=== PATIENT | female | born 1985 | race African-American/Black ===

== ENCOUNTER 2019-07-24 09:35 | Inpatient (IN) | payer OTHER ==
[~2019-07-24] VITALS: Ht 162.6 cm; Wt 108.9 kg
[2019-07-24] MEDS ORDERED: HYDROCODONE/ACETAMINOPHEN 5/325MG TABLET PO ONE (10:15)
[2019-07-24] MEDS ORDERED: MORPHINE SULFATE 4 MG/ML CPJ (NOT FOR IM USE) IV ONE ×3 (14:00→21:15)
[2019-07-24] MEDS ORDERED: ONDANSETRON HCL 4MG/2ML INJ IV ONE ×2 (16:15→21:15)
[2019-07-25] MEDS ORDERED: MORPHINE SULFATE 4 MG/ML CPJ (NOT FOR IM USE) IV ONE (00:45)
[2019-07-25] MEDS ORDERED: ONDANSETRON HCL 4MG/2ML INJ IV ONE (00:45)
[2019-07-25] MEDS ORDERED: ACETAMINOPHEN 325MG TABLET PO ONE (06:00)
[2019-07-25] MEDS ORDERED: HYDROCODONE/ACETAMINOPHEN 5/325MG TABLET PO ONE (12:00)
[2019-07-25] MEDS ORDERED: DOCUSATE SODIUM 100MG CAPSULE PO PRN (13:00)
[2019-07-25] MEDS ORDERED: KETOROLAC 15MG/ML VIAL IV PRN (13:00)
[2019-07-25] MEDS ORDERED: LORAZEPAM 0.5MG TABLET PO PRN (13:00)
[2019-07-25] MEDS ORDERED: GUAIFENESIN 200MG/10ML SUGAR FREE UDC PO PRN (13:00)
[2019-07-25] MEDS ORDERED: CLONIDINE 0.1MG TABLET PO PRN (13:00)
[2019-07-25] MEDS ORDERED: NITROGLYCERIN 0.4MG TABLET SL SL PRN (13:00)
[2019-07-25] MEDS ORDERED: IPRATROPIUM/ALBUTEROL 0.5-3(2.5)MG/3ML NEB NEB PRN (13:00)
[2019-07-25] MEDS ORDERED: ZOLPIDEM TARTRATE 5MG TABLET PO PRN (13:00)
[2019-07-25] MEDS ORDERED: MAGNESIUM/ALUMINUM HYDROXIDE/SIMETHICONE 30ML UDC PO PRN (13:00)
[2019-07-25 13:09] LABS: BASOPHILS % 0.8 % (0.0-2.0); EOSINOPHILS % 0.7 % (0.0-5.0); HEMATOCRIT. 36.5 % (36.0-48.0); HEMOGLOBIN. 12.4 g/dL (12.0-16.0); LYMPHOCYTES % 17.7 % (20.0-50.0); MEAN CORPUSCULAR HEMOGLOBIN 31.3 pg (28.0-32.0); MEAN CORPUSCULAR VOLUME 92.2 fL (81.0-99.0); MEAN PLATELET VOLUME 8.2 fl (7.4-10.4); MONOCYTES % 7.7 % (2.0-8.0); NEUTROPHILS % 73.1 % (40.0-76.0); PLATELET 319 x1000/uL (130-400); RED BLOOD CELL COUNT 3.95 mill/uL (4.2-5.4); RED CELL DISTRIBUTION WIDTH 14.2 % (11.6-14.6)
[2019-07-25 13:16] LABS: INR 1.1; PROTHROMBIN TIME 11.3 sec (9.6-11.0)
[2019-07-25 13:18] LABS: CHLORIDE 104 mEq/L (98-107)
[2019-07-25] MEDS: ONDANSETRON HCL 4MG/2ML INJ IV PRN (13:33)
[2019-07-25 14:46] VITALS: BP 154/79
[2019-07-25] MEDS ORDERED: METF-815 MT (14:55)
[2019-07-25] MEDS: MORPHINE SULFATE 2 MG/ML CPJ (NOT FOR IM USE) IV PRN ×2 (15:16→20:45)
[2019-07-25 16:00] VITALS: BP 154/79
[2019-07-25] MEDS ORDERED: INFLUENZA VIRUS VACCINE(AFLURIA) 0.5ML SYR IM ONE (16:00)
[2019-07-25] MEDS ORDERED: PNEUMOCOCCAL 23-VAL P-SAC VAC 0.5 ML IM ONE (16:00)
[2019-07-25] MEDS ORDERED: DEXTROSE 50% WATER 50ML SYRINGE IV PRN (17:15)
[2019-07-25] MEDS: INSULIN LISPRO 100 UNITS/ML SUBCUT SCH ×2 (17:24→21:00)
[2019-07-25] MEDS: BLOOD SUGAR DIAGNOSTIC STRIP TEST SCH ×2 (17:24→21:00)
[2019-07-25] MEDS: HYDROCODONE/ACETAMINOPHEN 10/325MG TABLET PO PRN ×2 (17:38→23:49)
[2019-07-25 20:00] VITALS: BP 129/75
[2019-07-25] MEDS: FAMOTIDINE 20MG TABLET PO SCH (20:27)
[2019-07-25] MEDS: ENOXAPARIN 30MG/0.3ML SYR SUBCUT SCH (20:35)
[2019-07-25] MEDS ORDERED: ENOXAPARIN 40MG/0.4ML SYR SUBCUT SCH (21:00)
[2019-07-26] VITALS: BP 121/74
[2019-07-26] MEDS: ONDANSETRON HCL 4MG/2ML INJ IV PRN ×4 (00:55→20:14)
[2019-07-26] MEDS: MORPHINE SULFATE 2 MG/ML CPJ (NOT FOR IM USE) IV PRN ×4 (01:57→20:10)
[2019-07-26 04:00] VITALS: BP 154/56
[2019-07-26] MEDS: BLOOD SUGAR DIAGNOSTIC STRIP TEST SCH ×4 (07:20→20:57)
[2019-07-26 07:30] LABS: *AMPHETAMINES SCREEN URINE NEGATIVE (NEGATIVE); *BARBITURATES SCREEN URINE NEGATIVE (NEGATIVE); *BENZODIAZEPINES SCREEN URINE NEGATIVE (NEGATIVE)
[2019-07-26 07:31] LABS: *COCAINE SCREEN URINE NEGATIVE (NEGATIVE); CANNABINOID URINE SCREEN NEGATIVE (NEGATIVE); METHADONE URINE SCREEN NEGATIVE (NEGATIVE); PHENCYCLIDINE URINE SCREEN NEGATIVE (NEGATIVE)
[2019-07-26 07:38] LABS: OPIATES URINE SCREEN PRESUMTIVE POSITIVE (NEGATIVE)
[2019-07-26] MEDS: INSULIN LISPRO 100 UNITS/ML SUBCUT SCH ×4 (07:50→20:57)
[2019-07-26 08:00] VITALS: BP 128/60
[2019-07-26] MEDS: FAMOTIDINE 20MG TABLET PO SCH ×2 (08:50→20:14)
[2019-07-26] MEDS: ENOXAPARIN 30MG/0.3ML SYR SUBCUT SCH ×2 (08:51→20:38)
[2019-07-26] MEDS: HYDROCODONE/ACETAMINOPHEN 10/325MG TABLET PO PRN ×2 (08:58→15:16)
[2019-07-26 12:00] VITALS: BP 143/84
[2019-07-26 16:00] VITALS: BP 112/53
[2019-07-26 20:00] VITALS: BP 153/88
[2019-07-27] VITALS: BP 145/69
[2019-07-27 04:00] VITALS: BP 112/64
[2019-07-27] MEDS: BLOOD SUGAR DIAGNOSTIC STRIP TEST SCH ×4 (06:24→21:00)
[2019-07-27] MEDS: INSULIN LISPRO 100 UNITS/ML SUBCUT SCH ×4 (07:47→21:00)
[2019-07-27 08:00] VITALS: BP 135/84
[2019-07-27] MEDS: MORPHINE SULFATE 2 MG/ML CPJ (NOT FOR IM USE) IV PRN ×2 (08:19→14:52)
[2019-07-27] MEDS: ENOXAPARIN 30MG/0.3ML SYR SUBCUT SCH ×2 (09:00→21:00)
[2019-07-27] MEDS: FAMOTIDINE 20MG TABLET PO SCH ×2 (09:00→22:31)
[2019-07-27] MEDS: DEXT 5%/0.9% NACL 1,000 ML IV SCH ×2 (11:03→22:22)
[2019-07-27 12:00] VITALS: BP 131/68
[2019-07-27 16:00] VITALS: BP 127/57
[2019-07-27] MEDS ORDERED: SKIN ADHESIVE 0.7 GM EA TOP ONE (16:01)
[2019-07-27] MEDS ORDERED: VANCOMYCIN HCL 500 MG/VIAL ONE (16:01)
[2019-07-27] MEDS ORDERED: BUPIVACAINE/EPINEPH/PF 0.25%/0.0005 10ML ONE (16:01)
[2019-07-27 16:43] LABS: HCG SCREEN NEGATIVE
[2019-07-27] MEDS ORDERED: FENTANYL CITRATE/PF 50MCG/ML 2ML VIAL ONE ×3 (17:30→19:05)
[2019-07-27] MEDS ORDERED: LIDOCAINE HCL/PF 1% 10 MG/ML 5ML VIAL ONE (17:30)
[2019-07-27] MEDS ORDERED: MIDAZOLAM HCL 2 MG/2 ML VIAL ONE (17:30)
[2019-07-27] MEDS ORDERED: PROPOFOL 200MG/20ML VIAL IV ONE (17:30)
[2019-07-27] MEDS ORDERED: ONDANSETRON HCL 4MG/2ML INJ ONE (17:31)
[2019-07-27] MEDS ORDERED: CEFAZOLIN SODIUM 1000MG/VIAL ONE (17:31)
[2019-07-27] MEDS ORDERED: METOCLOPRAMIDE HCL 10MG/2ML VIAL ONE (17:31)
[2019-07-27] MEDS ORDERED: KETOROLAC 30MG/ML VIAL ONE (18:23)
[2019-07-27] MEDS ORDERED: HYDROMORPHONE HCL/PF 2MG/ML (OR) ONE ×2 (19:54→20:57)
[2019-07-27] MEDS ORDERED: SODIUM CHLORIDE 0.9% 1,000 ML IV SCH (20:23)
[2019-07-27] MEDS ORDERED: HYDROMORPHONE HCL/PF 2MG/ML CPJ IV PRN (20:30)
[2019-07-27] MEDS: HYDROCODONE/ACETAMINOPHEN 10/325MG TABLET PO PRN (22:32)
[2019-07-27] MEDS: ONDANSETRON HCL 4MG/2ML INJ IV PRN (22:39)
[2019-07-28] MEDS: MORPHINE SULFATE 2 MG/ML CPJ (NOT FOR IM USE) IV PRN ×4 (02:14→19:47)
[2019-07-28 04:00] VITALS: BP 148/90
[2019-07-28] MEDS: CEFAZOLIN 2,000 MG in DEXT 5% WATER 100 ML IV SCH ×3 (05:04→19:58)
[2019-07-28] MEDS: BLOOD SUGAR DIAGNOSTIC STRIP TEST SCH ×4 (06:38→21:00)
[2019-07-28] MEDS: INSULIN LISPRO 100 UNITS/ML SUBCUT SCH ×4 (06:40→21:00)
[2019-07-28] MEDS: HYDROCODONE/ACETAMINOPHEN 10/325MG TABLET PO PRN ×3 (06:55→23:00)
[2019-07-28 08:00] VITALS: BP 136/75
[2019-07-28] MEDS: FAMOTIDINE 20MG TABLET PO SCH ×2 (08:13→20:48)
[2019-07-28] MEDS: ENOXAPARIN 30MG/0.3ML SYR SUBCUT SCH ×2 (08:14→20:49)
[2019-07-28] MEDS: DEXT 5%/0.9% NACL 1,000 ML IV SCH ×2 (10:30→17:02)
[2019-07-28 12:00] VITALS: BP 136/80
[2019-07-28 16:00] VITALS: BP 146/87
[2019-07-28] MEDS: ONDANSETRON HCL 4MG/2ML INJ IV PRN (16:59)
[2019-07-28] MEDS: LACTULOSE 20G/30ML UDC PO SCH ×2 (17:01→20:48)
[2019-07-28] MEDS: DOCUSATE SODIUM 100MG CAPSULE PO SCH (17:01)
[2019-07-28 20:00] VITALS: BP 155/94
[2019-07-28] MEDS: ACETAMINOPHEN 325MG TABLET PO PRN (20:49)
[2019-07-29] VITALS (7 sets, daily range): BP systolic 131–151; BP diastolic 78–89
[2019-07-29] MEDS: MORPHINE SULFATE 2 MG/ML CPJ (NOT FOR IM USE) IV PRN ×4 (03:48→22:57)
[2019-07-29] MEDS: BLOOD SUGAR DIAGNOSTIC STRIP TEST SCH ×4 (06:29→20:50)
[2019-07-29] MEDS: HYDROCODONE/ACETAMINOPHEN 10/325MG TABLET PO PRN ×3 (06:32→20:39)
[2019-07-29] MEDS: INSULIN LISPRO 100 UNITS/ML SUBCUT SCH ×4 (07:50→20:50)
[2019-07-29] MEDS: DOCUSATE SODIUM 100MG CAPSULE PO SCH ×2 (08:08→16:30)
[2019-07-29] MEDS: ENOXAPARIN 30MG/0.3ML SYR SUBCUT SCH ×2 (08:08→20:39)
[2019-07-29] MEDS: FAMOTIDINE 20MG TABLET PO SCH ×2 (08:08→20:39)
[2019-07-29] MEDS: LACTULOSE 20G/30ML UDC PO SCH (08:09)
[2019-07-29] MEDS: POLYETHYLENE GLYCOL 3350 (17GM) 1 DOSE PACK PO SCH (08:14)
[2019-07-29] MEDS ORDERED: MORPHINE SULFATE 4 MG/ML CPJ (NOT FOR IM USE) IV SCH (10:57)
[2019-07-29 11:52] LABS: CREATINE KINASE MB FRACTION < 1.0 ng/mL (0.5-3.6)
[2019-07-29] MEDS: ACETAMINOPHEN 325MG TABLET PO PRN (12:19)
[2019-07-29] MEDS: DEXT 5%/0.9% NACL 1,000 ML IV SCH (12:29)
[2019-07-30] VITALS: BP 148/72
[2019-07-30] MEDS: MORPHINE SULFATE 2 MG/ML CPJ (NOT FOR IM USE) IV PRN ×2 (03:18→09:58)
[2019-07-30 04:00] VITALS: BP 101/62
[2019-07-30] MEDS: HYDROCODONE/ACETAMINOPHEN 10/325MG TABLET PO PRN ×3 (05:25→20:22)
[2019-07-30 06:41] LABS: BASOPHILS % 0.5 % (0.0-2.0); HEMATOCRIT. 30.7 % (36.0-48.0); HEMOGLOBIN. 10.4 g/dL (12.0-16.0); LYMPHOCYTES % 24.1 % (20.0-50.0); MEAN CORPUSCULAR HEMOGLOBIN 30.8 pg (28.0-32.0); MEAN CORPUSCULAR VOLUME 90.9 fL (81.0-99.0); MEAN PLATELET VOLUME 8.3 fl (7.4-10.4); MONOCYTES % 9.1 % (2.0-8.0); NEUTROPHILS % 63.3 % (40.0-76.0); PLATELET 330 x1000/uL (130-400); RED BLOOD CELL COUNT 3.37 mill/uL (4.2-5.4); RED CELL DISTRIBUTION WIDTH 13.9 % (11.6-14.6)
[2019-07-30 06:42] LABS: CHLORIDE 105 mEq/L (98-107)
[2019-07-30 06:50] LABS: PHOSPHORUS 2.8 mg/dL (2.5-4.9)
[2019-07-30] MEDS: INSULIN LISPRO 100 UNITS/ML SUBCUT SCH ×4 (07:30→21:00)
[2019-07-30] MEDS: BLOOD SUGAR DIAGNOSTIC STRIP TEST SCH ×4 (07:30→20:09)
[2019-07-30 08:00] VITALS: BP_SYST 112; BP_SYST 138; BP_DIAS 64; BP_DIAS 70
[2019-07-30] MEDS: FAMOTIDINE 20MG TABLET PO SCH ×2 (09:15→20:08)
[2019-07-30] MEDS: DOCUSATE SODIUM 100MG CAPSULE PO SCH ×2 (09:16→18:37)
[2019-07-30] MEDS: ENOXAPARIN 30MG/0.3ML SYR SUBCUT SCH ×2 (09:17→20:09)
[2019-07-30] MEDS: POLYETHYLENE GLYCOL 3350 (17GM) 1 DOSE PACK PO SCH (09:21)
[2019-07-30 12:00] VITALS: BP 134/67
[2019-07-30] MEDS ORDERED: MORPHINE SULFATE 2 MG/ML CPJ (NOT FOR IM USE) IV PRN (15:45)
[2019-07-30 16:00] VITALS: BP 124/63
[2019-07-30 20:00] VITALS: BP 145/65
[2019-07-30 20:02] LABS: CLARITY URINE CLEAR (CLEAR); COLOR URINE YELLOW (YELLOW); KETONES URINE TRACE (NEGATIVE); LEUKOCYTE ESTERASE URINE 2+ (NEGATIVE); NITRITE URINE NEGATIVE (NEGATIVE); OCCULT BLOOD URINE NEGATIVE (NEGATIVE); PH URINE 7.5 (4.5-8.0); PROTEIN URINE NEGATIVE (NEGATIVE); SPECIFIC GRAVITY URINE 1.012 (1.005-1.030)
[2019-07-31] VITALS: BP 136/80
[2019-07-31] MEDS: HYDROCODONE/ACETAMINOPHEN 10/325MG TABLET PO PRN ×3 (03:17→19:40)
[2019-07-31 04:00] VITALS: BP 142/78
[2019-07-31 06:35] LABS: BASOPHILS % 0.5 % (0.0-2.0); HEMOGLOBIN. 10.5 g/dL (12.0-16.0); LYMPHOCYTES % 26.5 % (20.0-50.0); MEAN CORPUSCULAR VOLUME 91.2 fL (81.0-99.0); MEAN PLATELET VOLUME 8.2 fl (7.4-10.4); PLATELET 358 x1000/uL (130-400); RED CELL DISTRIBUTION WIDTH 13.6 % (11.6-14.6)
[2019-07-31] MEDS: BLOOD SUGAR DIAGNOSTIC STRIP TEST SCH ×4 (07:13→21:00)
[2019-07-31] MEDS: INSULIN LISPRO 100 UNITS/ML SUBCUT SCH ×4 (07:13→21:00)
[2019-07-31 08:00] VITALS: BP 131/76
[2019-07-31] MEDS: POLYETHYLENE GLYCOL 3350 (17GM) 1 DOSE PACK PO SCH (09:30)
[2019-07-31] MEDS: FAMOTIDINE 20MG TABLET PO SCH ×2 (09:30→21:19)
[2019-07-31] MEDS: DOCUSATE SODIUM 100MG CAPSULE PO SCH ×2 (09:30→17:40)
[2019-07-31] MEDS: ENOXAPARIN 30MG/0.3ML SYR SUBCUT SCH ×2 (09:31→21:20)
[2019-07-31 12:00] VITALS: BP 134/73
[2019-07-31 16:00] VITALS: BP 149/78
[2019-07-31] MEDS: LACTULOSE 20G/30ML UDC PO SCH (17:41)
[2019-07-31 20:00] VITALS: BP 130/83
[2019-08-01] VITALS: BP 135/71
[2019-08-01] MEDS: LACTULOSE 20G/30ML UDC PO SCH ×2 (01:44→08:50)
[2019-08-01] MEDS: HYDROCODONE/ACETAMINOPHEN 10/325MG TABLET PO PRN ×4 (01:45→20:27)
[2019-08-01 04:00] VITALS: BP 146/70
[2019-08-01 06:47] LABS: BASOPHILS % 0.6 % (0.0-2.0); EOSINOPHILS % 4.4 % (0.0-5.0); HEMATOCRIT. 32.5 % (36.0-48.0); HEMOGLOBIN. 11.1 g/dL (12.0-16.0); LYMPHOCYTES % 34.3 % (20.0-50.0); MEAN CORPUSCULAR HEMOGLOBIN 30.9 pg (28.0-32.0); MEAN CORPUSCULAR VOLUME 90.6 fL (81.0-99.0); MEAN PLATELET VOLUME 8.2 fl (7.4-10.4); MONOCYTES % 8.2 % (2.0-8.0); NEUTROPHILS % 52.5 % (40.0-76.0); PLATELET 416 x1000/uL (130-400); RED BLOOD CELL COUNT 3.59 mill/uL (4.2-5.4); RED CELL DISTRIBUTION WIDTH 13.8 % (11.6-14.6)
[2019-08-01 06:50] LABS: CHLORIDE 105 mEq/L (98-107)
[2019-08-01 07:03] LABS: LDL CHOLESTEROL 78 mg/dL (5-100); PHOSPHORUS 4.4 mg/dL (2.5-4.9)
[2019-08-01 07:05] LABS: HDL CHOLESTEROL 24 mg/dL (40-59); TOTAL IRON BINDING CAPACITY 247 ug/dL (250-450)
[2019-08-01 07:07] LABS: FERRITIN 177 ng/mL (10-291)
[2019-08-01 07:18] LABS: VITAMIN B12 SERUM 397 pg/mL (211-911)
[2019-08-01] MEDS: BLOOD SUGAR DIAGNOSTIC STRIP TEST SCH ×4 (07:50→20:36)
[2019-08-01] MEDS: INSULIN LISPRO 100 UNITS/ML SUBCUT SCH ×4 (07:50→20:45)
[2019-08-01 08:00] VITALS: BP 147/68
[2019-08-01] MEDS: POLYETHYLENE GLYCOL 3350 (17GM) 1 DOSE PACK PO SCH (08:50)
[2019-08-01] MEDS: DOCUSATE SODIUM 100MG CAPSULE PO SCH ×2 (08:51→16:13)
[2019-08-01] MEDS: FAMOTIDINE 20MG TABLET PO SCH ×2 (08:51→20:29)
[2019-08-01] MEDS: ENOXAPARIN 30MG/0.3ML SYR SUBCUT SCH ×2 (09:01→20:30)
[2019-08-01 12:00] VITALS: BP_SYST 132; BP_SYST 97; BP_DIAS 55; BP_DIAS 81
[2019-08-01 16:00] VITALS: BP 146/76
[2019-08-01] MEDS: ASCORBIC ACID 500 MG TABLET PO SCH (16:13)
[2019-08-01] MEDS: CYANOCOBALAMIN 1000MCG/ML VIAL IM SCH (16:17)
[2019-08-01] MEDS: FERROUS SULFATE 325MG TABLET PO SCH (18:29)
[2019-08-01 20:00] VITALS: BP 130/72
[2019-08-02] VITALS: BP 115/66
[2019-08-02 04:00] VITALS: BP 115/76
[2019-08-02] MEDS: HYDROCODONE/ACETAMINOPHEN 10/325MG TABLET PO PRN ×3 (05:17→23:54)
[2019-08-02] MEDS: BLOOD SUGAR DIAGNOSTIC STRIP TEST SCH ×4 (07:26→21:21)
[2019-08-02] MEDS: INSULIN LISPRO 100 UNITS/ML SUBCUT SCH ×4 (07:50→21:00)
[2019-08-02 08:00] VITALS: BP 126/77
[2019-08-02] MEDS: ASCORBIC ACID 500 MG TABLET PO SCH (08:39)
[2019-08-02] MEDS: CYANOCOBALAMIN 1000MCG/ML VIAL IM SCH (08:39)
[2019-08-02] MEDS: ENOXAPARIN 30MG/0.3ML SYR SUBCUT SCH ×2 (08:39→21:20)
[2019-08-02] MEDS: DOCUSATE SODIUM 100MG CAPSULE PO SCH ×2 (08:39→17:00)
[2019-08-02] MEDS: POLYETHYLENE GLYCOL 3350 (17GM) 1 DOSE PACK PO SCH (08:39)
[2019-08-02] MEDS: FERROUS SULFATE 325MG TABLET PO SCH ×3 (08:39→17:50)
[2019-08-02] MEDS: FAMOTIDINE 20MG TABLET PO SCH ×2 (08:39→21:20)
[2019-08-02 12:00] VITALS: BP 125/79
[2019-08-02 16:00] VITALS: BP 120/71
[2019-08-02 20:00] VITALS: BP 108/71
[2019-08-03] VITALS: BP 142/85
[2019-08-03 04:00] VITALS: BP 142/85
[2019-08-03] MEDS: INSULIN LISPRO 100 UNITS/ML SUBCUT SCH ×4 (07:20→20:02)
[2019-08-03] MEDS: BLOOD SUGAR DIAGNOSTIC STRIP TEST SCH ×4 (07:20→20:03)
[2019-08-03] MEDS: ENOXAPARIN 30MG/0.3ML SYR SUBCUT SCH ×2 (08:24→20:03)
[2019-08-03] MEDS: CYANOCOBALAMIN 1000MCG/ML VIAL IM SCH (08:24)
[2019-08-03] MEDS: ASCORBIC ACID 500 MG TABLET PO SCH (08:25)
[2019-08-03] MEDS: FAMOTIDINE 20MG TABLET PO SCH ×2 (08:25→20:02)
[2019-08-03] MEDS: DOCUSATE SODIUM 100MG CAPSULE PO SCH ×3 (08:25→17:45)
[2019-08-03] MEDS: FERROUS SULFATE 325MG TABLET PO SCH ×4 (08:25→17:50)
[2019-08-03] MEDS: POLYETHYLENE GLYCOL 3350 (17GM) 1 DOSE PACK PO SCH (08:32)
[2019-08-03] MEDS ORDERED: LACTULOSE 20G/30ML UDC PO SCH (12:00)
[2019-08-03] MEDS: HYDROCODONE/ACETAMINOPHEN 10/325MG TABLET PO PRN (14:38)
[2019-08-04] MEDS: HYDROCODONE/ACETAMINOPHEN 10/325MG TABLET PO PRN ×2 (01:25→08:18)
[2019-08-04] MEDS: BLOOD SUGAR DIAGNOSTIC STRIP TEST SCH ×2 (05:51→12:20)
[2019-08-04] MEDS: INSULIN LISPRO 100 UNITS/ML SUBCUT SCH ×2 (05:51→12:50)
[2019-08-04] MEDS: DOCUSATE SODIUM 100MG CAPSULE PO SCH (08:14)
[2019-08-04] MEDS: FAMOTIDINE 20MG TABLET PO SCH (08:14)
[2019-08-04] MEDS: POLYETHYLENE GLYCOL 3350 (17GM) 1 DOSE PACK PO SCH (08:14)
[2019-08-04] MEDS: FERROUS SULFATE 325MG TABLET PO SCH (08:14)
[2019-08-04] MEDS: CYANOCOBALAMIN 1000MCG/ML VIAL IM SCH (08:14)
[2019-08-04] MEDS: ASCORBIC ACID 500 MG TABLET PO SCH (08:14)
[2019-08-04] MEDS: ENOXAPARIN 30MG/0.3ML SYR SUBCUT SCH (10:27)
[2019-08-04] MEDS ORDERED: SENN-170 MT (10:58)
[2019-08-04] MEDS ORDERED: METF-416 MT (10:58)
[2019-08-04] MEDS ORDERED: HYDR-4009 MT (10:58)
[2019-08-04] MEDS ORDERED: APIX2.5T PO (10:58)
[2019-08-04 11:06] VITALS: BP 112/67
[2019-08-05 04:07] LABS: 25-HYDROXY VITAMIN D3 12 ng/mL (.)
[2019-08-14] MEDS ORDERED: CYANOCOBALAMIN 1000MCG/ML VIAL IM SCH (09:00)
== END 2019-08-04 14:35 | disposition home or self-care (01) | DRG 493 ==
LOC: ER 09:35 → 6EST 07-25 12:50 → ENRESERV 07-25 13:26
PROVIDERS: ADMIT Internal Medicine; ATTEND Internal Medicine
PROC: 2W3QX1Z Immobilization of Right Lower Leg using Splint (ICD-10-PCS; 2019-07-24)
PROC: 0QSJ04Z Reposition Right Fibula with Internal Fixation Device, Open Approach (ICD-10-PCS; principal; 2019-07-27)
PROC: 0QSG04Z Reposition Right Tibia with Internal Fixation Device, Open Approach (ICD-10-PCS; 2019-07-27)
DX: S82.201A Unspecified fracture of shaft of right tibia, initial encounter for closed fracture (principal); E44.0 Moderate protein-calorie malnutrition; Z68.41 Body mass index [BMI] 40.0-44.9, adult; E66.01 Morbid (severe) obesity due to excess calories; W01.0XXA Fall on same level from slipping, tripping and stumbling without subsequent striking against object, initial encounter; E61.1 Iron deficiency; E11.65 Type 2 diabetes mellitus with hyperglycemia; S82.401A Unspecified fracture of shaft of right fibula, initial encounter for closed fracture; Z79.899 Other long term (current) drug therapy; Z79.4 Long term (current) use of insulin; Z82.49 Family history of ischemic heart disease and other diseases of the circulatory system; Z98.84 Bariatric surgery status; Y93.89 Activity, other specified; Y92.098 Other place in other non-institutional residence as the place of occurrence of the external cause; Y99.8 Other external cause status; Z86.61 Personal history of infections of the central nervous system; Z91.81 History of falling
CPT/HCPCS: 36415; 71046; 73590; 73600; 73620; 76000; 80048; 80061; 80305; 81003; 82306; 82553; 82607; 82728; 82962; 83036; 83540; 83550; 83735; 84100; 84443; 84484; 84703; 93005; 93970; 96374; 97110; 97116; 97162; 97166; 97530; 99285; C1713; J0171; J0690; J1170; J1650; J1815; J1885; J2250; J2270; J2405; J2704; J2765; J3010; J3370; J3420; J3490; J7042; J7060